=== PATIENT | female | born 1990 | race Caucasian/White ===

== ENCOUNTER 2016-11-16 02:11 | Emergency (ER) | payer SELFPAY ==
--- NOTE | ~2016-11-16 | EKG ---
PATIENT: SUSAN MASCORRO UNIT #: [id number] Ventricular Rate: 83 BPM Atrial Rate: 83 BPM P-R Interval: 168 ms QRS Duration: 82 ms Q-T Interval: 372 ms QTC Calculation(Bezet): 437 ms P Butler: 70 degrees Calculated R Butler: 67 degrees Calculated T Butler: 62 degrees Diagnosis Line: Normal sinus rhythm with sinus arrhythmia Diagnosis Line: Normal ECG Diagnosis Line: No previous ECGs available Diagnosis Line: Confirmed by NICHOLAS VIVAS MD ([id number]) on Diagnosis Line: 11/16/2016 5:49:34 PM INTERPRETING MD: LACI
[~2016-11-16 02:11] MED LIST: BACTRIM DS TABL1 TA1 PO; BENADRYL25 M1 PO; IBUPROFEN800 MG PO; KEFLEX PO; KEFLEX250 M1 PO; NILSTAT PO; PRENATAL VITAMI1 TA3 PO; VOLTAREN75 MG PO
== END 2016-11-16 04:15 | disposition home or self-care (01) ==
LOC: CED 02:11
DX: R00.2 Palpitations (principal); F41.9 Anxiety disorder, unspecified; F17.200 Nicotine dependence, unspecified, uncomplicated; Z98.890 Other specified postprocedural states; Z88.2 Allergy status to sulfonamides; Z88.8 Allergy status to other drugs, medicaments and biological substances
CPT/HCPCS: 84703; 93005; 99285